=== PATIENT | female | born 1970 | race Caucasian/White ===

== ENCOUNTER 2017-10-06 01:48 | Emergency (ER) | END 2017-10-06 06:01 | disposition home or self-care (01) ==

== ENCOUNTER 2017-10-06 18:32 | Emergency (ER) | END 2017-10-06 21:00 | disposition home or self-care (01) ==

== ENCOUNTER 2018-08-11 18:47 | Emergency (ER) | payer MEDICAID ==
[~2018-08-11] VITALS: Ht 160 cm; Wt 59.6 kg
[~2018-08-11 18:47] MED LIST: ACET500C5 PO; FAMO-96 PO; NITR-58 PO
[2018-08-11 18:54] VITALS: BP 121/59; PULSE 69; RESP 18; Ht 160 cm; Wt 59.6 kg
[2018-08-11] MEDS ORDERED: D-ME473S2 PO (20:16)
[2018-08-11] MEDS ORDERED: AZIT250T PO (20:16)
[2018-08-11] MEDS ORDERED: IBUP-1542 PO (20:17)
--- NOTE | 2018-08-11 20:21 | ERD ---
ER Documentation Chief Complaint Chief Complaint ST/ COUGH X'S 4 WEEKS HPI 48-year-old female presents with productive cough for last month. She may have had fever 2 weeks ago but those resolved. She denies chest pain, vomiting or abdominal pain patient has history of asthma. She also complains of sore throat and ear pain. She has not been seen for this prior. ROS All systems reviewed and are negative except as per history of present illness. Medications Home Meds Active Scripts Ibuprofen* (Motrin*) 600 Mg Tab, 600 MG PO Q6H PRN for PAIN, #15 TAB Prov:GREGOR RICE MD 08/11/18 Dextromethorphan Hb-Promethazine Hcl* (Promethazine DM* Syrup) 473 Ml Syrup, 5 ML PO Q6 PRN for COUGH for 5 Days, ML Prov:GREGOR RICE MD 08/11/18 Azithromycin* (Zithromax*) 250 Mg Tablet, 250 MG PO .ZPACK DIRECTED, #6 TAB TAKE 500 MG (2 TABS) THE FIRST DAY THEN 250 MG (1 TAB) DAYS 2-5 Prov:GREGOR RICE MD 08/11/18 Nitrofurantoin Monohyd Macrocr* (Macrobid*) 100 Mg Capsr, 100 MG PO BID for 5 Days, CAP Prov:TRAVIS LOAIZA-C 10/06/17 Famotidine* (Pepcid*) 20 Mg Tablet, 20 MG PO BID for 30 Days, TAB Prov:TRAVIS LOAIZA-C 10/06/17 Acetaminophen* (Tylophen*) 500 Mg Capsule, 1 CAP PO Q6H PRN for PAIN AND OR ELEVATED TEMP, #20 CAP Prov:TRAVIS LOAIZA-C 10/06/17 Discontinued Scripts Dextromethorphan Hb-Promethazine Hcl* (Promethazine DM* Syrup) 473 Ml Syrup, 5 ML PO Q6 PRN for COUGH for 5 Days, ML Prov:GREGOR RICE MD 08/11/18 Allergies Allergies: Coded Allergies: No Known Allergy (Verified , 10/22/11) PMhx/Soc History of Surgery: No Anesthesia Reaction: No Hx Neurological Disorder: No Hx Respiratory Disorders: No Hx Cardiac Disorders: No Hx Psychiatric Problems: No Hx Miscellaneous Medical Probl: No Hx Alcohol Use: No Hx Substance Use: No Hx Tobacco Use: No Smoking Status: Never smoker FmHx Family History: No diabetes, No coronary disease, No other Physical Exam Vitals Vital Signs Date Temp Pulse Resp B/P (MAP) Pulse Ox O2 O2 Flow FiO2 Time Delivery Rate 08/11/18 98.4 69 18 121/59 99 18:54 (79) Physical Exam Const: No acute distress Head: Atraumatic Eyes: Normal Conjunctiva ENT: Normal External Ears, Nose and Mouth. TMs and oropharynx normal except for postnasal drip. Neck: Full range of motion. No meningismus. Resp: Clear to auscultation bilaterally . Slight rhonchi without rales, wheezing or retractions. Cardio: Regular rate and rhythm, no murmurs Abd: Soft, non tender, non distended. Normal bowel sounds Skin: No petechiae or rashes Back: No midline or flank tenderness Ext: No cyanosis, or edema Neur: Awake and alert Psych: Normal Mood and Affect Procedures/MDM She presents with productive cough without signs of hypoxemia, rest distress, signs of pneumonia. She will be treated empirically given the duration of productive cough with Zithromax, promethazine, ibuprofen, recommendations for primary care follow-up and return precautions. The patient was stable with no new complaints during the ER course. Clinically, there is no current evidence to suggest meningitis, sepsis, acute abdomen, pneumonia, stroke, acute coronary syndrome, pulmonary embolism, aortic dissection or any other emergent condition appearing to require further evaluation or hospitalization. Patient counseled regarding my diagnostic impression and care plan. Prior to discharge all questions answered. Pt agrees with treatment plan and understands strict return precautions. Pt is instructed to follow up with primary care provider within 24- 48 hours. Precautionary instructions provided including instructions to return to the ER if not improving or for any worsening or changing symptoms or concerns. Disclaimer: Inadvertent spelling and grammatical errors are likely due to EHR/dictation software use and do not reflect on the overall quality of patient care. Also, please note that the electronic time recorded on this note does not necessarily reflect the actual time of the patient encounter. Departure Diagnosis: Primary Impression: URI, acute Condition: Stable Patient Instructions: Bronchitis, Antiobiotic Treatment (Adult) Additional Instructions: Cheque otro vez con viramontes doctor primario en el proximo pruitt or regresa para mas o nueva simptomas. GREGOR RICE MD Aug 11, 2018 20:21
== END 2018-08-11 20:29 | disposition home or self-care (01) ==
LOC: FTE 18:47
DX: J06.9 Acute upper respiratory infection, unspecified (principal); J45.909 Unspecified asthma, uncomplicated
CPT/HCPCS: 99283

== ENCOUNTER 2018-08-19 20:01 | Emergency (ER) | payer MEDICAID ==
[~2018-08-19] VITALS: Ht 157.5 cm; Wt 59.0 kg
[~2018-08-19 20:01] MED LIST changes: +AZIT250T PO; +D-ME473S2 PO; +IBUP-1542 PO
[2018-08-19 20:09] VITALS: BP 133/61; PULSE 75; RESP 18; Ht 157.5 cm; Wt 59.0 kg
[2018-08-19] MEDS ORDERED: AMOX1TAB10 PO (21:56)
[2018-08-19] MEDS ORDERED: D-ME118S24 PO (21:56)
[2018-08-19] MEDS ORDERED: ACET-141 PO (21:58)
--- NOTE | 2018-08-19 22:03 | ERD ---
ER Documentation Chief Complaint Chief Complaint BROCK WITH JAW/& SWOLLEN LYMPH NODES X 8 DAYS ROS All systems reviewed and are negative except as per history of present illness. Medications Home Meds Active Scripts Acetaminophen* (Acetaminophen*) 500 MG Extra Strength Tablet, 500 MG PO Q4H PRN for PAIN AND OR ELEVATED TEMP, #30 TAB Prov:LIZ MARCH DO 08/19/18 D-Methorphan Hb/P-Epd HCl/Bpm (Uzhpvjxyep-Zrsqcczlcnj-Ud Syr) 118 Ml Syrup, 5 ML PO Q4H PRN for COUGH for 10 Days, #1 BOTTLE Prov:LIZ MARCH DO 08/19/18 Amoxicillin/Potassium Clav (Amox-Clav 875-125 mg Tablet) 875-125 mg Tab, 1 TAB PO BID for respiratory infection for 7 Days, #14 TAB Prov:LIZ MARCH DO 08/19/18 Ibuprofen* (Motrin*) 600 Mg Tab, 600 MG PO Q6H PRN for PAIN, #15 TAB Prov:GREGOR RICE MD 08/11/18 Dextromethorphan Hb-Promethazine Hcl* (Promethazine DM* Syrup) 473 Ml Syrup, 5 ML PO Q6 PRN for COUGH for 5 Days, ML Prov:GREGOR RICE MD 08/11/18 Azithromycin* (Zithromax*) 250 Mg Tablet, 250 MG PO .MeryPACK DIRECTED, #6 TAB TAKE 500 MG (2 TABS) THE FIRST DAY THEN 250 MG (1 TAB) DAYS 2-5 Prov:GREGOR RICE MD 08/11/18 Nitrofurantoin Monohyd Macrocr* (Macrobid*) 100 Mg Capsr, 100 MG PO BID for 5 Days, CAP Prov:TRAVIS LOAIZA PA-C 10/06/17 Famotidine* (Pepcid*) 20 Mg Tablet, 20 MG PO BID for 30 Days, TAB Prov:TRAVIS LOAIZA PA-C 10/06/17 Acetaminophen* (Tylophen*) 500 Mg Capsule, 1 CAP PO Q6H PRN for PAIN AND OR ELEVATED TEMP, #20 CAP Prov:TRAVIS LOAIZA PA-C 10/06/17 Allergies Allergies: Coded Allergies: No Known Allergy (Verified , 10/22/11) PMhx/Soc Medical and Surgical Hx: pt denies Medical Hx, pt denies Surgical Hx History of Surgery: No Anesthesia Reaction: No Hx Neurological Disorder: No Hx Respiratory Disorders: No Hx Cardiac Disorders: No Hx Psychiatric Problems: No Hx Miscellaneous Medical Probl: No Hx Alcohol Use: No Hx Substance Use: No Hx Tobacco Use: No Smoking Status: Never smoker Physical Exam Vitals Vital Signs Date Temp Pulse Resp B/P (MAP) Pulse Ox O2 O2 Flow FiO2 Time Delivery Rate 08/19/18 97.9 75 18 133/61 100 20:09 (85) Physical Exam Const: No acute distress Head: Atraumatic Eyes: Normal Conjunctiva ENT: Normal External Ears, Nose and Mouth. Neck: Full range of motion. No meningismus. Resp: Clear to auscultation bilaterally Cardio: Regular rate and rhythm, no murmurs Abd: Soft, non tender, non distended. Normal bowel sounds Skin: No petechiae or rashes Back: No midline or flank tenderness Ext: No cyanosis, or edema Neur: Awake and alert Psych: Normal Mood and Affect Departure Diagnosis: Primary Impression: URI (upper respiratory infection) URI type: unspecified URI Qualified Codes: J06.9 - Acute upper respiratory infection, unspecified Condition: Fair Patient Instructions: Preventing Common Respiratory Infections Referrals: COMMUNITY CLINICS YOU HAVE RECEIVED A MEDICAL SCREENING EXAM AND THE RESULTS INDICATE THAT YOU DO NOT HAVE A CONDITION THAT REQUIRES URGENT TREATMENT IN THE EMERGENCY DEPARTMENT. FURTHER EVALUATION AND TREATMENT OF YOUR CONDITION CAN WAIT UNTIL YOU ARE SEEN IN YOUR DOCTORS OFFICE WITHIN THE NEXT 1-2 DAYS. IT IS YOUR RESPONSIBILITY TO MAKE AN APPOINTMENT FOR FOLOW-UP CARE. IF YOU HAVE A PRIMARY DOCTOR --you should call your primary doctor and schedule an appointment IF YOU DO NOT HAVE A PRIMARY DOCTOR YOU CAN CALL OUR PHYSICIAN REFERRAL HOTLINE AT IF YOU CAN NOT AFFORD TO SEE A PHYSICIAN YOU CAN CHOSE FROM THE FOLLOWING [facility] [address] [facility] [address] [facility] [facility] [address] [facility] [facility] [address] [facility] [address] [facility]. [facility] [address] Additional Instructions: Call your primary care doctor TOMORROW for an appointment during the next 1-2 days.See the doctor sooner or return here if your condition worsens before your appointment time. Llame al doctor MAANA y katherine hafsa CHRIS PARA DENTRO DE 1-2 WEST.Dgale a la secretaria que nosotros le instruimos hacer esta chris.Avise o llame si viramontes condicin se empeora antes de la chris. Regresa aqui si peor o no mejor. LIZ MARCH DO Aug 19, 2018 22:03
== END 2018-08-19 22:11 | disposition home or self-care (01) ==
LOC: FTE 20:01
DX: J06.9 Acute upper respiratory infection, unspecified (principal)
CPT/HCPCS: 99283